=== PATIENT | female | born 1975 | race Two or more races ===

== ENCOUNTER 2023-10-23 13:25 | Emergency (ER) | payer OTHER ==
[~2023-10-23] VITALS: Ht 172.7 cm; Wt 110.2 kg
[2023-10-23] MEDS ORDERED: LASIX20 MG PO (14:37)
[2023-10-23] MEDS ORDERED: CLONAZEPAM1 MG PO (14:38)
== END 2023-10-23 17:31 | disposition home or self-care (01) ==
LOC: ER 13:26
DX: K52.89 Other specified noninfective gastroenteritis and colitis (principal); R07.89 Other chest pain; Z88.6 Allergy status to analgesic agent